=== PATIENT | female | born 1985 | race Two or more races ===

== ENCOUNTER 2024-11-04 02:41 | Inpatient (IN) | payer MEDICAID, OTHER ==
[~2024-11-04] VITALS: Ht 165.1 cm; Wt 72.3 kg
--- NOTE | 2024-11-04 03:11 | ED.PDOC ---
HPI Comments A 39 year old female presents to the ED with a chief complaint of chest pain onset today around 00:00. Patient states she woke up, got up to walk to the restroom when she noticed a sharp, burning chest pain that worsens when she swallows as well as lightheadedness. She rates her pain a 10/10. Denies any past medical history as well as cough, fever, chills, nausea, vomiting, diarrhea, constipation. No other symptoms or modifying factors present at this time. Chief Complaint: Chest Pain Time Seen by MD: 02:57 Reviewed Notes: Medications, Allergies Allergies: Coded Allergies: NO KNOWN ALLERGIES (Unverified , 11/04/24) Information Source: Patient Mode of Arrival: Ambulatory Severity: Moderate Timing: Hours Duration: Since onset Prehospital treatment: None Quality: Sharp, Burning Cardiac Risk Factors: None PE Risk Factors: None History of: None Modifying Factors: Nothing Vital Signs Vital Signs Date Time Temp Pulse Resp B/P (MAP) Pulse Ox O2 Delivery O2 Flow Rate FiO2 11/04/24 05:28 98.4 68 16 127/80 (96) 100 98.4 Physical Exam General: Awake, alert and oriented. No acute distress. Skin: Skin in warm, dry and intact. Appropriate color for ethnicity. Nailbeds pink with no cyanosis. HEENT: The head is normocephalic and atraumatic. Conjunctivae are clear without exudates or hemorrhage. Sclera is non-icteric. EOM are intact. No signs of n ystagmus. Eyelids are normal in appearance without swelling or lesions. Oral mucosa is pink and moist Neck: The neck is supple with normal range of motion. No JVD. Cardiac: Heart rate and rhythm are normal. No murmurs, gallops, or rubs are auscultated. Respiratory: No signs of respiratory distress. Lung sounds are clear in all lobes bilaterally without rales, ronchi, or wheezes. Abdominal: Abdomen is soft, non-tender without distention. Bowel sounds are present and normoactive in all four quadrants. Extremities: Upper and lower extremities are atraumatic in appearance without deformity or edema. Positive chest wall tenderness to palpation. Neurological: The patient is awake, alert and oriented to person, place, and time with normal speech. Speech is clear. There is no facial asymmetry. Psychiatric: Appropriate mood and affect. Good judgement and insight. No visual or auditory hallucinations. Review of Systems: REVIEW OF SYSTEMS: No fever, no chills, or fatigue HEENT: No sore throat, no earache, no congestion, no neck pain. Cardiac: Positive chest pain. No palpitations. Lungs: No shortness of breath, no cough. GI: Positive difficulty swallowing. No nausea, no vomiting, no diarrhea, no constipation, no abdominal pain : No dysuria, frequency, or urgency. No hematuria. Musculoskeletal: No joint pain , no joint swelling, no extremity edema. Positi ve chest wall tenderness to palpation. Skin: No rash, no itching. 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 Was a procedure done?: No CP Differential Dx Differential Diagnosis: Other Differential Diagnosis: Aortic dissection, Chest Wall Pain, Costochondritis, Esophageal reflux/spasm, Gastritis, Myocardial Infarction, Pericarditis, P neumonia, Other (Food bolus,) X-Ray, Labs, Meds, VS Vital Signs Date Time Temp Pulse Resp B/P (MAP) Pulse Ox O2 Delivery O2 Flow Rate FiO2 11/04/24 05:28 98.4 68 16 127/80 (96) 100 98.4 11/04/24 03:03 61 11/04/24 02:50 97.5 76 18 125/74 (91) 99 Lab Test 11/04/24 03:22 11/04/24 02:49 Range/Units White Blood Count 4.5 4.4-10.8 10^3/uL Red Blood Count 4.27 4.0-5.20 10^6/uL Hemoglobin 13.9 12.2-16.2 g/dL Hematocrit 40.6 36.0-46.0 % Mean Corpuscular Volume 95.3 80.0-100.0 fL Mean Corpuscular Hemoglobin 32.7 H 28.0-32.0 pg Mean Corpuscular Hemoglobin Concent 34.3 32.0-36.0 g/dL Red Cell Distribution Width 12.4 11.8-14.3 % Platelet Count 232 140-450 10^3/uL Mean Platelet Volume 7.3 6.9-10.8 fL Neutrophils (%) (Auto) 47.9 37.0-80.0 % Lymphocytes (%) (Auto) 41.5 10.0-50.0 % Monocytes (%) (Auto) 5.6 0.0-12.0 % Eosinophils (%) (Auto) 4.6 0.0-7.0 % Basophils (%) (Auto) 0.4 0.0-2.0 % Neutrophils # (Auto) 2.2 1.6-8.6 10 ^3/uL Lymphocytes # (Auto) 1.9 0.4-5.4 10 ^3/uL Monocytes # (Auto) 0.3 0-1.3 10 ^3/uL Eosinophils # (Auto) 0.2 0-0.8 10 ^3/uL Basophils # (Auto) 0 0-0.2 10 ^3/uL Nucleated Red Blood Cells 0.1 % Sodium Level 139 136-145 mmol/L Potassium Level 3.7 3.5-5.1 mmol/L Chloride Level 105 98-107 mmol/L Carbon Dioxide Level 27 20-31 mmol/L Anion Gap 7 5-15 Blood Urea Nitrogen 9 9-23 mg/dL Creatinine 0.77 0.550-1.02 mg/dL Glomerular Filtration Rate Calc 101 >90 mL/min BUN/Creatinine Ratio 11.7 10.0-20.0 Serum Glucose 101 74-106 mg/dL Calcium Level 10.2 8.7-10.4 mg/dL Total Bilirubin 0.6 0.2-1.0 mg/dL Aspartate Amino Transferase (AST) 13 13-40 U/L Alanine Aminotransferase (ALT) 16 7-40 U/L Alkaline Phosphatase 79 46-116 U/L Troponin I High Sensitivity < 3 L </=34 ng/L Total Protein 7.4 5.7-8.2 g/dL Albumin 4.5 3.2-4.8 g/dL Beta HCG, Quantitative < 0.0 L 1.5-4.2 mIU/mL Urine Color Colorless Yellow Urine Clarity Clear Clear Urine pH 6.5 5.0-9.0 Urine Specific [place] 1.010 1.001-1.035 Urine Protein Negative Negative Urine Ketones Negative Negative Urine Blood Negative Negative /uL Urine Nitrite Negative Negative Urine Bilirubin Negative Negative Urine Urobilinogen Normal Negative mg/dL Urine Leukocyte Esterase Negative Negative /uL Urine RBC 1 0 - 4 /hpf Urine WBC 1 0 - 5 /hpf Urine Squamous Epithelial Cells Few <5 /hpf Urine Bacteria Mod H None Seen /hpf Urine Glucose Normal Normal mg/dL Current Medications Medications (Trade) Dose Ordered Sig/Homero Route Start Time Stop Time Status Last Admin Al Hydrox/Mg Hydrox/Simethicone (Maalox Plus) 30 ml ONCE ONCE PO 11/04/24 03:15 11/04/24 03:16 DC 11/04/24 05:40 Lidocaine HCl (Xylocaine 2% Viscous) 10 ml ONCE ONCE PO 11/04/24 03:15 11/04/24 03:16 DC 11/04/24 05:40 [place] [id number] Ph: [phone] DIAGNOSTIC IMAGING Diagnostic Imaging Report : [id number] Signed PATIENT: ROMULO CALHOUN ACCT: [id number] UNIT: [id number] : 1985 LOC: ER ROOM / BED: / AGE / SEX: 39 / F ADM STATUS: REG ER SERVICE 3 ORDERING PHYSICIAN: BENJI WALLACE MD PROCEDURE(s): CXR2 - CHEST TWO VIEWS ROUTINE REASON: cp ORDER NUMBER(s): [id number], ACCESSION NUMBER(s): [id number] EXAM: XY CHEST TWO VIEWS ROUTINE CLINICAL HISTORY: cp COMPARISON: None TECHNIQUE: Frontal and lateral view of the chest was obtained FINDINGS: Lines and Tubes: None Lungs: No focal consolidation. Pleura: No effusion. No pneumothorax. Cardiomediastinal contours: Unremarkable Bones: No acute osseous abnormality. IMPRESSION: No acute cardiopulmonary disease. ATED BY: CHIRAG RUIZ MD DICTATED DATE/TIME: 11/04/24430 SIGNED BY: CHIRAG RUIZ MD SIGNED DATE/TIME: 11/04/24430 CC: Time of 1ST Reevaluation: 03:27 Reevaluation 1ST: Unchanged Patient Education/Counseling: Diagnosis, Treatment, Prognosis Family Education/Counseling: No Family Present Departure 1 Departure Time of Disposition: 06:05 Impression: Primary Impression: Chest pain Disposition: 30 STILL A PATIENT Condition: Stable Comments 39-year-old female with chest pain. Initial troponin EKG negative. Patient reports pain is down to 4/10 at this time. She has been able to swallow without difficulty during the ED observation. Sign out to oncoming provider pending repeat troponin and EKG. Extensive evaluation was performed to identify or rule out: Acute coronary syndrome, esophageal rupture, pneumonia, pneumothorax, pulmonary embolism The following tests were ordered, and results were reviewed by me: (See diagnostic results section) The following test were independently interpreted by me: EKG I reviewed and agreed with the following test results read by other providers: Chest x-ray I reviewed the following notes from the pt's past medical encounters: (None available at this time) Additional information was gathered from interviewing the following independent historians: N/A Discussion of management or test interpretation with external physician/other qualified health adult care provider: N/A Critical Care Note Critical Care Time?: No Stability Stability form required: No Heart Score Heart Score: Heart Score Response (Comments) Value History Slightly Suspicious 0 EKG Normal 0 Age <45 0 Risk Factors No known risk factors 0 Troponin Normal limit 0 Total 0 I personally scribed for BENJI WALLACE MD ([email or web address]) on 11/04/24 at 03:11. Electronically submitted by Radha Merrill ([email or web address]). I personally scribed for BENJI WALLACE MD (VCE) on 11/04/24 at 05:06. Electronically submitted by Radha Merrill ([email or web address]). BENJI WALLACE MD Nov 04, 2024 03:11
[2024-11-04 03:31] LABS: Basophils # (auto) 0 10 ^3/uL (0-0.2); Basophils % (auto) 0.4 % (0.0-2.0); Eosinophils # (auto) 0.2 10 ^3/uL (0-0.8); Eosinophils % (auto) 4.6 % (0.0-7.0); Hematocrit 40.6 % (36.0-46.0); Hemoglobin 13.9 g/dL (12.2-16.2); Lymphocytes # (auto) 1.9 10 ^3/uL (0.4-5.4); Lymphocytes % (auto) 41.5 % (10.0-50.0); Mean Corpuscular Hemoglobin 32.7 pg (28.0-32.0); Mean Corpuscular Hgb Conc. 34.3 g/dL (32.0-36.0); Mean Corpuscular Volume 95.3 fL (80.0-100.0); Monocytes # (auto) 0.3 10 ^3/uL (0-1.3); Monocytes % (auto) 5.6 % (0.0-12.0); Neutrophils # (auto) 2.2 10 ^3/uL (1.6-8.6); Neutrophils % (auto) 47.9 % (37.0-80.0); Nucleated Red Blood Cells % 0.1 %; Platelet Count (auto) 232 10^3/uL (140-450); Red Blood Cells 4.27 10^6/uL (4.0-5.20); Red Cell Distribution Width 12.4 % (11.8-14.3); White Blood Cell 4.5 10^3/uL (4.4-10.8)
[2024-11-04] MEDS: MAALOX PLUS or MAALOX 30 ML PO ONE ×2 (03:54→05:40)
[2024-11-04] MEDS: LIDOCAINE VISCOUS 2% 15ML UD PO ONE ×2 (03:56→05:40)
[2024-11-04 04:01] LABS: Alanine Aminotransferase 16 U/L (7-40); Albumin 4.5 g/dL (3.2-4.8); Alkaline Phosphatase 79 U/L (46-116); Anion Gap 7 (5-15); BUN/Creatinine Ratio 11.7 (10.0-20.0); Bilirubin, Total 0.6 mg/dL (0.2-1.0); Calcium 10.2 mg/dL (8.7-10.4); Carbon Dioxide 27 mmol/L (20-31); Chloride 105 mmol/L (98-107); Glucose 101 mg/dL (74-106); Potassium 3.7 mmol/L (3.5-5.1); Sodium 139 mmol/L (136-145); Total Protein 7.4 g/dL (5.7-8.2)
[2024-11-04 04:02] LABS: Aspartate Aminotransferase 13 U/L (13-40); Blood Urea Nitrogen 9 mg/dL (9-23)
[2024-11-04 04:04] LABS: Urine Bacteria MOD /hpf (None Seen); Urine Blood Negative /uL (Negative); Urine Clarity Clear (Clear); Urine Color Colorless (Yellow); Urine Protein, UAD Negative (Negative); Urine Urobilinogen Normal (Negative); Urine WBC 1 /hpf (0 - 5); Urine pH 6.5 (5.0-9.0)
--- NOTE | 2024-11-04 04:33 | DVH ---
EXAM: XY CHEST TWO VIEWS ROUTINE CLINICAL HISTORY: cp COMPARISON: None TECHNIQUE: Frontal and lateral view of the chest was obtained FINDINGS: Lines and Tubes: None Lungs: No focal consolidation. Pleura: No effusion. No pneumothorax. Cardiomediastinal contours: Unremarkable Bones: No acute osseous abnormality. IMPRESSION: No acute cardiopulmonary disease.
[2024-11-04 05:28] VITALS: BP 127/80; PULSE 68; RESP 16; TEMP 98.4; O2SAT 100
--- NOTE | 2024-11-04 06:40 | ECG ---
[facility]– [place] Test Date: 2024-11-04 Test Time: 03:03:24 Pat Name: ROMULO CALHOUN Department: ER Room: [address] [place] [address] Gender: F Water Systems Engineer: MARIAMA : 1985 Requested By: BENJI WALLACE Order Number: [id number] Reading MD: Vitaly Cisneros Measurements Intervals [place] Rate: 61 P: 0 [place]: 66 QRS: 48 QRSD: 88 T: 12 QT: 404 QTc: 407 Interpretive Statements Sinus rhythm Short [place] interval Low voltage, precordial leads Borderline T abnormalities, inferior leads Electronically Signed On 11-04-2024 12:06:17 PST by Vitaly Cisneros Please click the below link to view image of tracing.
[2024-11-04] MEDS ORDERED: NITROGLYCERIN 0.4 MG SL TAB SL PRN (08:30)
[2024-11-04] MEDS ORDERED: ASPirin 325 MG TAB PO SCH (08:30)
[2024-11-04] MEDS ORDERED: ONDANSETRON HCL 4 MG/2 ML VIAL IV PRN (08:30)
[2024-11-04] MEDS ORDERED: HYDROcodone-ACET 5/325MG TAB PO PRN (08:30)
[2024-11-04] MEDS ORDERED: MORPHINE SULFATE INJ 2 MG/ml SYRG IV PRN (08:30)
[2024-11-04] MEDS ORDERED: DOCUSATE SOD 100 MG CAP PO PRN (08:30)
[2024-11-04] MEDS ORDERED: ACETAMINOPHEN 325 MG TAB PO PRN (08:30)
--- NOTE | 2024-11-04 08:36 | DVHHP2 ---
History of Present Illness Reason for Visit: Chest Pain History of Present Illness Elli Guajardo is a 39-year-old female with no significant past medical history who comes in with complaints of chest pain. Patient states the pain started about 2230, in the midline of her chest radiating up her throat/neck. She states the pain worsened around midnight causing her to get up, she tried walking it off, and when it did not improve she came into the hospital. Past Surgical History: (x 2) Smoke: No ALCOHOL: none Drugs: None Lives: with Family Domestic Violence: Neg Review of Systems Constitutional: No: Fever, Chills, Sweats, Weakness, Malaise, Other Eyes: No: Pain, Vision change, Conjunctivae inflammation, Eyelid inflammation, Other, Redness ENT: No: Ear pain, Ear discharge, Nose pain, Nose discharge, Nose congestion, Mouth pain, Mouth swelling, Throat pain, Throat swelling, Other Respiratory: No: Cough, Dry, Shortness of breath, SOB with excertion, Wheezing, Hemoptysis, Pleuritic Pain, Sputum, Wheezing, Other Cardiovascular: Chest Pain; No: Palpitations, Orthopnea, Paroxysmal Noc. Dyspnea, Edema, Lt Headedness, Other Gastrointestinal: No: Nausea, Vomiting, Abdominal Pain, Diarrhea, Constipation, Melena, Hematochezia, Other Genitourinary: No Dysuria, No Frequency, No Incontinence, No Hematuria, No Retention, No Other Musculoskeletal: No: other, neck pain, shoulder pain, arm pain, back pain, hand pain, leg pain, foot pain Skin: No: Rash, Lesions, Jaundice, Bruising, Other Neurological: No: Weakness, Numbness, Incoordination, Change in speech, Confusion, Seizures, Other Allergies: Coded Allergies: NO KNOWN ALLERGIES (Unverified , 11/04/24) Exam Vital Signs Vital Signs Date Time Temp Pulse Resp B/P (MAP) Pulse Ox O2 Delivery O2 Flow Rate FiO2 11/04/24 05:28 98.4 68 16 127/80 (96) 100 98.4 General Appearance: Alert, Oriented X3, Cooperative, mild distress HEENT: Atraumatic, PERRLA Respiratory: Clear to auscultation, Normal air movement Cardiovascular: Regular rate, Normal S1, Normal S2, No murmurs Abdominal: Normal bowel sounds, Soft, No tenderness, No hepatospenomegaly Extremities: No clubbing, No cyanosis, No edema, Normal pulses Skin: No rashes, No breakdown, No significant lesion Neuro: Normal gait, Normal speech, Strength at 5/5 X4 ext Psych/Mental Status: Mental status NL, Mood NL Labs/Xrays Labs Test 11/04/24 06:18 11/04/24 03:22 11/04/24 02:49 Range/Units Troponin I High Sensitivity < 3 L </=34 ng/L White Blood Count 4.5 4.4-10.8 10^3/uL Red Blood Count 4.27 4.0-5.20 10^6/uL Hemoglobin 13.9 12.2-16.2 g/dL Hematocrit 40.6 36.0-46.0 % Mean Corpuscular Volume 95.3 80.0-100.0 fL Mean Corpuscular Hemoglobin 32.7 H 28.0-32.0 pg Mean Corpuscular Hemoglobin Concent 34.3 32.0-36.0 g/dL Red Cell Distribution Width 12.4 11.8-14.3 % Platelet Count 232 140-450 10^3/uL Mean Platelet Volume 7.3 6.9-10.8 fL Neutrophils (%) (Auto) 47.9 37.0-80.0 % Lymphocytes (%) (Auto) 41.5 10.0-50.0 % Monocytes (%) (Auto) 5.6 0.0-12.0 % Eosinophils (%) (Auto) 4.6 0.0-7.0 % Basophils (%) (Auto) 0.4 0.0-2.0 % Neutrophils # (Auto) 2.2 1.6-8.6 10 ^3/uL Lymphocytes # (Auto) 1.9 0.4-5.4 10 ^3/uL Monocytes # (Auto) 0.3 0-1.3 10 ^3/uL Eosinophils # (Auto) 0.2 0-0.8 10 ^3/uL Basophils # (Auto) 0 0-0.2 10 ^3/uL Nucleated Red Blood Cells 0.1 % Sodium Level 139 136-145 mmol/L Potassium Level 3.7 3.5-5.1 mmol/L Chloride Level 105 98-107 mmol/L Carbon Dioxide Level 27 20-31 mmol/L Anion Gap 7 5-15 Blood Urea Nitrogen 9 9-23 mg/dL Creatinine 0.77 0.550-1.02 mg/dL Glomerular Filtration Rate Calc 101 >90 mL/min BUN/Creatinine Ratio 11.7 10.0-20.0 Serum Glucose 101 74-106 mg/dL Calcium Level 10.2 8.7-10.4 mg/dL Total Bilirubin 0.6 0.2-1.0 mg/dL Aspartate Amino Transferase (AST) 13 13-40 U/L Alanine Aminotransferase (ALT) 16 7-40 U/L Alkaline Phosphatase 79 46-116 U/L Total Protein 7.4 5.7-8.2 g/dL Albumin 4.5 3.2-4.8 g/dL Beta HCG, Quantitative < 0.0 L 1.5-4.2 mIU/mL Urine Color Colorless Yellow Urine Clarity Clear Clear Urine pH 6.5 5.0-9.0 Urine Specific [place] 1.010 1.001-1.035 Urine Protein Negative Negative Urine Ketones Negative Negative Urine Blood Negative Negative /uL Urine Nitrite Negative Negative Urine Bilirubin Negative Negative Urine Urobilinogen Normal Negative mg/dL Urine Leukocyte Esterase Negative Negative /uL Urine RBC 1 0 - 4 /hpf Urine WBC 1 0 - 5 /hpf Urine Squamous Epithelial Cells Few <5 /hpf Urine Bacteria Mod H None Seen /hpf Urine Glucose Normal Normal mg/dL EXAM: XY CHEST TWO VIEWS ROUTINE FINDINGS: Lines and Tubes: None Lungs: No focal consolidation. Pleura: No effusion. No pneumothorax. Cardiomediastinal contours: Unremarkable Bones: No acute osseous abnormality. IMPRESSION: No acute cardiopulmonary disease. Assessment/Plan Assessment/Plan Assessment: ACS (acute coronary syndrome), Plan: Admit to Tele, Cardiology consult, ACS protocol, TSH, Plan discussed with: Patient My Orders Orders - YUE BARON Procedure Category Date Status Time Admit ADMIT 11/04/24 Verified 08:24 Code Status CODE 11/04/24 Verified 08:24 2 Gm Sodium Diet DIET 11/04/24 Verified Breakfast Sodium Chloride Lock PHA 11/04/24 Verified (Saline Lock Ns) 14:00 Hydrocodone-Acet PHA 11/04/24 Verified 5/325mg Tab ([place] 08:30 Ondansetron Hcl PHA 11/04/24 Verified (Zofran) 08:30 Docusate Sodium PHA 11/04/24 Verified Capsule (Colace 08:30 Complete Blood Count LAB 11/05/24 Verified 04:00 Comprehensive LAB 11/05/24 Verified Metabolic Panel 04:00 Condition: Serious [facility] 11/04/24 Verified 08:24 Acetaminophen Tablet PHA 11/04/24 Verified (Tylenol Tablet) 08:30 Nitroglycerin [facility] 11/04/24 Verified Sublingual (Ntrostat 08:30 Morphine Sulfate [facility] 11/04/24 Verified Injection 08:30 Stat Ekg For Chest [facility] 11/04/24 Verified Pain 08:24 Notify Md Of Changes [facility] 11/04/24 Verified From Base 08:24 Pyrotechnics Press Tender For [facility] 11/04/24 Verified 24 Hours 08:24 Emergency Dysrhythmia [facility] 11/04/24 Verified Protocol 08:24 Rhythm Strips Once [facility] 11/04/24 Verified Every Shift 08:24 Oxygen By Nasal RT 11/04/24 Verified Cannula 08:24 * Cardiology Consult CONS 11/04/24 Verified 08:24 Vital Signs SYLVIA 11/04/24 Verified 08:24 Aspirin Tablet [facility] 11/05/24 Verified 10:00 Aspirin Tablet [facility] 11/04/24 Verified 08:30 Lipitor 40mg Hs PHA 11/04/24 Verified Hi-Intensity 22:00 Electrocardigram EKG 11/04/24 Verified 08:24 Troponin-I Hs LAB 11/04/24 Verified 08:24 Date of Service: Nov 04, 2024 Billing Provider: YUE BARON Common Visit Codes: [id number] INP/OBS CARE (MOD) YUE BARON Nov 04, 2024 08:36
[2024-11-04] MEDS ORDERED: ASPirin 325 MG TAB PO ONE (08:45)
[2024-11-04] MEDS ORDERED: SODIUM CHLOR 0.9% PF (SALINE LOCK) 10ML VIAL/SYR IV SCH (14:00)
[2024-11-04] MEDS ORDERED: ATORVASTATIN 20 MG TAB PO SCH (22:00)
[2024-11-05] MEDS ORDERED: ASPirin 81 mg TAB PO SCH (10:00)
== END 2024-11-04 09:10 | disposition left against medical advice (07) | DRG 198 ==
LOC: ER 02:41 → TELE 08:24
PROVIDERS: ADMIT Nurse Practitioner Family; ATTEND Nurse Practitioner Family
DX: I24.9 Acute ischemic heart disease, unspecified (principal); Z53.29 Procedure and treatment not carried out because of patient's decision for other reasons; Z79.899 Other long term (current) drug therapy
CPT/HCPCS: 36415; 71046; 80053; 81001; 84484; 84702; 85025; 93005; G0378